=== PATIENT | male | born 1995 | race Caucasian/White ===

== ENCOUNTER 2017-02-23 02:46 | Emergency (ER) | payer OTHER ==
--- NOTE | 2017-02-23 19:22 | ER ---
ADMIT: 02/23/2017 RM/LOC: ER [facility] MR#: [id number] [address] [id number] ROSEANN MAGDALENO [address] [place] [id number] Emergency Room Report SEX: M AGE: 21 : 1995 DATE: 02/23/2017 HISTORY OF PRESENT ILLNESS: The patient is a 21-year-old male with no past medical history, who came to the ER with electrocution of the left hand with low-voltage 240 V tonight before coming to the hospital. The patient states he was working, he is a welder helper, and his hand inadvertently touched the cable and he was electrified for 1 second. He denies any falling or head trauma. The patient denies any chest pain or shortness of breath. The incident happened just before coming to the hospital. PHYSICAL EXAMINATION: GENERAL: In the ER, the patient was in no pain or distress and states that he touched the wire with the palm of the left hand. VITAL SIGNS: Normal. EKG did not show any arrhythmia or other abnormalities. HEAD AND NECK: Pupils are 3 mm, reactive to light. The rest of the head and neck exam is normal. CHEST: Clear, bilateral. HEART: Normal heart sounds without any murmurs or gallops. ABDOMEN: Soft. EXTREMITIES: I did not see any entrance or exit wound or any burning. LABORATORY DATA: Lab works were normal, especially CK was also normal too. EMERGENCY DEPARTMENT COURSE: The patient received IV fluid and was re- examined, and the patient also complains of very mild numbness of the left hand. The patient was reassured that numbness is transient and would be resolved. The patient was advised to follow up with the primary doctor as needed and was informed more about the possible risk of compartment syndrome, and was advised to come to the ER or primary doctor if he noticed any increased pain in the left upper extremity or other extremities or if there is any new numbness or tingling or feeling pressure in the extremities. The patient acknowledged and was discharged to home with followup with the primary doctor as needed. FINAL DIAGNOSIS: Left upper extremity low voltage electrocution. Justin Booth MD/ olman JOB #: [id number] CC: Justin Booth MD, Attending Physician Roseann Soares MD, Family Physician
== END 2017-02-23 05:00 | disposition home or self-care (01) ==
LOC: ER 02:46
DX: T75.4XXA Electrocution, initial encounter (principal); F17.210 Nicotine dependence, cigarettes, uncomplicated; Z90.89 Acquired absence of other organs; W86.1XXA Exposure to industrial wiring, appliances and electrical machinery, initial encounter